=== PATIENT | male | born 1980 | race African-American/Black ===

== ENCOUNTER 2016-08-14 18:13 | Inpatient (IN) | payer OTHER ==
[~2016-08-14] VITALS: Ht 175.3 cm; Wt 81.6 kg
--- NOTE | 2016-08-14 18:51 | NUR ---
Informed waiting has been performed.
--- NOTE | 2016-08-14 18:51 | NUR ---
TRIAGE: UPPER LIP SWELLING SINCE NOON. PT HAS HAD S/S OF N/V/D X 3 DAYS WITH ASSOCIATED ABD PAIN AND CHEST PAIN. NO VOMITING TODAY. HAS BEEN TOLERATING GATORADE SINCE 6 PM. REPORTS AT TIMES FEELS ACID LIKE BURNING IN HIS THROAT BUT DENIES DIFFICULTY BREATHING OR SWALLOWING.
[2016-08-14] MEDS ORDERED: SERTRALINE HCL100 MG PO (19:01)
[2016-08-14] MEDS ORDERED: TRAZODONE HCL100 M1 PO (19:01)
--- NOTE | 2016-08-14 19:11 | ED GI/GU/ABDOMINAL COMPLAINT ---
History of Present Illness General Chief Complaint: General Adult Stated Complaint: UPPER LIP SWOLLEN, +NVD, X 3 DAYS Source: patient Exam Limitations: no limitations Vital Signs & Intake/Output Vital Signs & Intake/Output Vital Signs Date Time Temp Pulse Resp B/P Pulse O2 O2 Flow FiO2 Ox Delivery Rate 08/14 2119 84 18 107/65 100 Room Air 08/14 2000 97 Room Air 08/14 1904 98.7 80 18 99/63 99 Room Air 08/14 1845 98.7 98 20 97/62 98 Room Air Allergies Coded Allergies: No Known Allergies (08/14/16) Reconcile Medications Sertraline HCl 100 MG TABLET 1 TAB PO DAILY MENTAL HEALTH (Reported) Trazodone HCl 100 MG TABLET 1 TAB PO QPM SLEEP/MENTAL HEALTH (Reported) Triage Note: TRIAGE: UPPER LIP SWELLING SINCE NOON. PT HAS HAD S/S OF N/V/D X 3 DAYS WITH ASSOCIATED ABD PAIN AND CHEST PAIN. NO VOMITING TODAY. HAS BEEN TOLERATING GATORADE SINCE 6 PM. REPORTS AT TIMES FEELS ACID LIKE BURNING IN HIS THROAT BUT DENIES DIFFICULTY BREATHING OR SWALLOWING. Triage Nurses Notes Reviewed? yes Onset: Gradual Duration: day(s):, getting worse Timing: recent history Location: nausa, vomiting, upper lip swelling Radiation: no radiation Activities at Onset: none Prior Abdominal Problems: none Modifying Factors: Worsens With: vomiting. Associated Symptoms: nausea/vomiting HPI: 36 yo gentleman h/o depression, presents with 2-3 days of nausea, vomiting, of uncertain etiology. He notes that this afternoon he developed swelling of his upper lip. He confers no dyspnea or wheezing. He is not on rosy inhibitors. He has never had such reactions before. He notes occasional loose stool, but no fever, chills, rash, palpitations, chest pain. He is otherwise well. Past History Travel History Traveled to [place] past 21 day No Medical History Any Pertinent Medical History? 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 No Review of Systems Review of Systems Constitutional: Reports: no symptoms. EENTM: Reports: no symptoms. Respiratory: Reports: no symptoms. Cardiovascular: Reports: no symptoms. GI: Reports: no symptoms. Genitourinary: Reports: no symptoms. Musculoskeletal: Reports: no symptoms. Skin: Reports: no symptoms. Neurological/Psychological: Reports: no symptoms. Hematologic/Endocrine: Reports: no symptoms. Immunologic/Allergic: Reports: no symptoms. All Other Systems: Reviewed and Negative Physical Exam Physical Exam General Appearance: well developed/nourished, mild distress Head: atraumatic, normal appearance Eyes: Bilateral: normal appearance. Ears, Nose, Throat, Mouth: hearing grossly normal, upper lip with significant edema. no change in tongue/oropharynx Neck: normal inspection, supple, full range of motion Respiratory: normal breath sounds, chest non-tender, no respiratory distress, quiet respiration, lungs clear Cardiovascular: regular rate/rhythm Gastrointestinal: normal bowel sounds, soft, minimal mid epigastric tenderness to palpation. no rebound. no guarding. Back: normal inspection, normal range of motion Extremities: normal range of motion Neurologic/Psych: no motor/sensory deficits, awake, alert, oriented x 3 Skin: intact, normal color, warm/dry Core Measures ACS in differential dx? No Severe Sepsis Present: No Septic Shock Present: No Progress Differential Diagnosis: viral syndrome vs reflux vs allergic reaction vs other. Plan of Care: Orders Procedure Date/time Status Nothing by Mouth 08/15 B Active Patient Data 08/14 2146 Active Saline Lock 08/14 2121 Active Misc Message 08/14 2121 Active ED Holding Orders 08/14 2121 Active Admit to inpatient 08/14 2121 Active Vital Signs 08/14 2121 Active Code Status 08/14 2121 Active TROPONIN LEVEL 08/14 1911 Complete LIPASE 08/14 1911 Complete HEPATIC FUNCTION PANEL 08/14 1911 Complete CBC WITHOUT DIFFERENTIAL 08/14 1911 Complete BASIC METABOLIC PANEL 08/14 1911 Complete AMYLASE 08/14 1911 Complete EKG 08/14 1911 Active Laboratory Tests 08/14/16 1425: Anion Gap 18 H, Estimated GFR 16 L, BUN/Creatinine Ratio 13.0, Glucose 101 H, Calcium 9.6, Total Bilirubin 0.9, Direct Bilirubin 0.4, AST 19, ALT 45, Alkaline Phosphatase 73, Troponin I < 0.01, Total Protein 8.2, Albumin 4.8, Amylase 76, Lipase 128, CBC w Diff NO MAN DIFF REQ, RBC 5.37, MCV 90.9, MCH 30.7, RDW 13.5, MPV 8.2, Gran % 59.7, Lymphocytes % 29.4, Monocytes % 9.6 H, Eosinophils % 0.7, Basophils % 0.6, Absolute Granulocytes 5.3, Absolute Lymphocytes 2.6, Absolute Monocytes 0.8 H, Absolute Eosinophils 0.1, Absolute Basophils 0.1, PUBS MCHC 33.8 Initial ED EKG: nonspecific st changes. Departure Departure Disposition: HOME OR SELF CARE Condition: Stable Clinical Impression Primary Impression: Renal failure Secondary Impressions: Allergic reaction, Dehydration, Nausea and vomiting Departure Forms: Customer Survey General Discharge Information Admission Note Spoke With: DAWSON MACIAS MD Documentation of Exam: Documentation of any treatments & extenuating circumstances including Concerns Regarding Discharge (functional status, medication knowledge or non-compliance, living conditions, etc.) that warrant an admission rather than observation: pt with renal failure with cr of 4.3... also with hyponatremia... likely hypovolemia... give the degree of his renal failure, pt merits iv fluids, possibly renal consult in AM if not resolving. Critical Care Note Critical Care Note Critical Care Time: 30-74 min
[2016-08-14 19:51] LABS: ABSOLUTE BASOPHIL COUNT 0.1 /CUMM (0.0-0.2); ABSOLUTE EOSINOPHIL COUNT 0.1 /CUMM (0.0-0.7); ABSOLUTE GRANULOCYTE CT 5.3 /CUMM (1.4-6.5); ABSOLUTE LYMPH COUNT 2.6 /CUMM (1.2-3.4); ABSOLUTE MONOCYTE COUNT 0.8 /CUMM (0.10-0.60); BASOPHIL % 0.6 % (0.0-2.0); EOSINOPHIL % 0.7 % (0-5); GRANULOCYTE % 59.7 % (42.2-75.2); HEMATOCRIT 48.8 % (42-52); MEAN CORPUSCULAR HGB 30.7 PG (27.0-31.0); MEAN CORPUSCULAR HGB CONC 33.8 G/DL (33.0-37.0); MEAN CORPUSCULAR VOLUME 90.9 FL (80.0-94.0); MEAN PLATELET VOLUME 8.2 FL (7.4-10.4); PLATELET COUNT 265 /CUMM (130-400); RBC DISTRIBUTION WIDTH 13.5 % (11.5-14.5); RED BLOOD CELL CT 5.37 /CUMM (4.70-6.10); WHITE BLOOD CELL COUNT 8.8 /CUMM (4.8-10.8)
--- NOTE | 2016-08-14 19:56 | NUR ---
TRIAGE NOTE ACKNOWLEDGED. PT REPORTS SAME TO THIS RN AND THAT HE HAS NOT BEEN SLEEPING WELL LATELY AND HAS BEEN STRESSED OUT. MD AWARE. IV ESTABLISHED LAC #20, BEST AVAILABLE. MEDICATED WITH PEPCID, ZOFRAN, GI COCKTAIL AND BENADRYL PER ORDER (SEE MAR). NS BOLUS INFUSING AT THIS TIME. WILL CONTINUE TO MONITOR.
--- NOTE | 2016-08-14 20:46 | NUR ---
PT STATES HE FEELS "A LITTLE BETTER." IMPROVEMENT IN UPPER LIP SWELLING NOTED. PT ALSO EXPRESSES RELIEF ON NAUSEA. NS STILL INFUSING, WILL CTM.
--- NOTE | 2016-08-14 20:48 | NUR ---
IN TO [facility]EEVAL PT AT THIS TIME.
--- NOTE | 2016-08-14 22:00 | History & Physical ---
LUPE RICHTER,[facility] [place] 08/14/16 2159: General Information and HPI MD Statement: I have seen and personally examined STEFFANY TENORIO and documented this H&P. The patient is a 36 year old M who presented with a patient stated chief complaint of malaise. Source of Information: patient, family Exam Limitations: no limitations History of Present Illness: 36 y/o M with PMHx of HTN and depression who presents with nausea, vomiting and malaise x 3 days. Patient had 6 episodes of nonbloody emesis since the onset of symptoms but feels that nausea and appetite have improved. The day prior to current presentation, he developed diffuse abdominal pain and left-sided chest discomfort, 6 out of 10 in severity, associated with breathing and not reproducible on palpation. He also noted decrease in his urine output as well as darkening in the color of his urine. He denies fevers, chills, constipation, diarrhea, leg swelling, rash or muscle aches. He denies any dietary changes, sick contacts, recent travel or insect bites. However, according to his mother, he has been drinking a lot of Gatorade. The morning of current presentation he noted lip swelling. He denies shortness or breath or wheezing. Patient was diagnosed with HTN last year and took HCTZ for a few months but stopped taking the medication on his own once his blood pressure improved to 120/80s, measured at home, after 75-lbs weight loss. However, a few months ago his BP was found to be markedly elevated (SBP of 200s) during an urgent care visit. Of note, patient was recently diagnosed with depression and started taking Zoloft and trazodone a few months ago but denies taking any other new medications including NSAIDs. 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 Home Who Do You Live With? parent Primary Language: Djib[place]ian Smoking Status: Never Smoked ETOH Use: denies use Illicit Drug Use: denies illicit drug use Employment History Employment Unemployed Review of Systems Review of Systems Constitutional: Reports: malaise, weakness. Denies: chills, fever. EENTM: Reports: see HPI. Cardiovascular: Reports: chest pain. Denies: peripheral edema. Respiratory: Denies: cough, short of breath, sputum production. GI: Reports: abdominal pain, nausea, vomiting. Denies: constipation, diarrhea, bloody stool. Genitourinary: Reports: see HPI. Musculoskeletal: Denies: muscle pain. Skin: Denies: rash. Neurological/Psychological: Reports: no symptoms. Hematologic/Endocrine: Reports: no symptoms. Immunologic/Allergic: Reports: no symptoms. All Other Systems: Reviewed and Negative Exam & Diagnostic Data Last 24 Hrs of Vital Signs/I&O Vital Signs Date Time Temp Pulse Resp B/P Pulse O2 O2 Flow FiO2 Ox Delivery Rate 08/14 2251 97.6 85 19 128/74 99 Room Air 08/14 2119 84 18 107/65 100 Room Air 08/14 2001 97 Room Air 08/14 1904 98.7 80 18 99/63 99 Room Air 08/14 1845 98.7 98 20 97/62 98 Room Air Intake & Output 08/15 0800 08/15 0000 08/14 1600 Intake Total 1000 Output Total Balance 1000 Intake, IV 1000 Patient 81.647 kg Weight Physical Exam General Appearance Alert, Oriented X3, No Acute Distress Skin No Rashes HEENT PERRLA, No Conjunctival Pallor or Scleral Icterus, Swollen Lips, Dry Mucous Membranes Cardiovascular Regular Rate, Normal S1, Normal S2, No Murmurs, Gallops, Rubs Lungs Clear to Auscultation, Normal Air Movement Abdomen Soft, No Tenderness, Positive Bowel Sounds Neurological No Gross Focal Deficits Noted Extremities No Clubbing, No Cyanosis, No Edema Last 24 Hrs of Labs/Rogleio: Laboratory Tests 08/14/16 2218: Lactic Acid 1.0 08/14/16 1425: Anion Gap 18 H, Estimated GFR 16 L, BUN/Creatinine Ratio 13.0, Glucose 101 H, Calcium 9.6, Total Bilirubin 0.9, Direct Bilirubin 0.4, AST 19, ALT 45, Alkaline Phosphatase 73, Creatine Kinase 73, Troponin I < 0.01, Total Protein 8.2, Albumin 4.8, Amylase 76, Lipase 128, CBC w Diff NO MAN DIFF REQ, RBC 5.37, MCV 90.9, MCH 30.7, RDW 13.5, MPV 8.2, Gran % 59.7, Lymphocytes % 29.4, Monocytes % 9.6 H, Eosinophils % 0.7, Basophils % 0.6, Absolute Granulocytes 5.3, Absolute Lymphocytes 2.6, Absolute Monocytes 0.8 H, Absolute Eosinophils 0.1, Absolute Basophils 0.1, PUBS MCHC 33.8 Diagnostic Data EKG Results NSR HR 91 QTc 488 Assessment/Plan Assessment: 36 y/o with PMHx of HTN and depression who presents with nausea, vomiting and malaise x 3 days and lip swelling x 1 day, with creatinine of 4.3 on admission. #HELDER: Creatinine 4.3 on admission. No documented prior baseline, although patient denies history of kidney disease. Unclear etiology. Differential includes pre-renal secondary to volume contraction or intra-renal most likely secondary to hypertensive nephrosclerosis. * Nephrology consulted. Appreciate their recs. * Monitor strict I/Os and daily BMPs. * Check urinalysis. * Bilateral renal US. * Urine lytes ordered. Calculate FeNa to distinguish between pre-renal vs intra- renal etiologies. * Check CPK. * Aggressive IVF hydration with NS @ 150 cc/hr. #HTN: Diagnosed 1 year ago and started on HCTZ which he stopped taking on his own after BPs improved (self-measured at home) following weight loss. However had markedly elevated BP at urgent care visit a few months ago. EKG suspicious for LVH. * ECHO ordered to evaluate for LVH given hypertension. #Lip swelling: Most likely represents angioedema. No respiratory distress or skin rashes. Unclear etiology. Patient denies taking any new medications and is not on CHEN inhibitors. No dietary changes except he has been drinking a lot of Gatorade. S/p IV Pepcid and Benadryl in the ED. * Monitor for improvement. #Depression: * Continue prior to admission Zoloft 100 mg PO QD. #Insomnia: * Continue prior to admission trazodone 100 mg PO QD. #Nausea/vomiting: Most likely viral gastroenteritis. Symptoms have improved since onset. * Continue IVF hydration. * Anti-emetics PRN. Diet: Regular DVT PPx: HSQ and ALPs CODE: FULL As Ranked By This Provider Problem List: 1. HELDER (acute kidney injury) 2. Nausea and vomiting 3. Depression 4. Insomnia 5. Lip swelling 6. Hypertension Core Measures/Miscellaneous Acute Coronary Syndrome ACS Diagnosis: No Cerebrovascular Accident CVA/TIA Diagnosis: No Congestive Heart Failure CHF Diagnosis: No Venous Thromboembolism VTE Risk Factors: Acute medical illness VTE Prophylaxis Ordered Inpt: Mech & Pharm No Mech VTE prophylaxis d/t: No contraindications No VTE Pharm Prophylaxis d/t: No contraindications VTE Diagnosis: No VTE Type: NONE VTE Confirmed by (Test): NONE Severe Sepsis Severe Sepsis Present: No Septic Shock Septic Shock Present: No Miscellaneous Documentation Attending Case Discussed With: DAWSON MACIAS MD Primary Care Physician: PATIENT HAS NO PRIMARY CARE DR Patient sees these Specialists Psychiatrist Pierre Payan at [facility] Level of Patient Care: General Medicine GUALBERTO TUBBS 08/14/16 9299: Resident Review Statement Resident Statement: examined this patient, discussed with editing intern, agreed with editing intern, discussed with family, reviewed EMR data (avail), discussed with nursing , discussed with case mgmt, reviewed images, amended to note Other Findings: 36-year-old gentleman with history of hypertension not on antihypertensive medication (was on HCTZ and stopped the medication by himself), spikes of HTN intermitantly, presented to the emergency room complaining of swelling of his upper lip, preceded by two-day history of nausea, vomiting and crampy abdominal pain and associated generalized malaise and body aches and weakness and also having dark([employer] color) urine and became oliguric and anuric on . Patient denies any recent travel, sick contact on, insect bites, fever, chills, chest pain, lightheadedness, dizziness, skin changes, fall or loss of couniosuness, muscle cramp or tenderness, prior similar episodes. ROS: generalized malaise and ache. Swelling of his upper lip. VS: 97/62; 98.7; 98; 20 Ph/EX: H&N: sclrea is pale, NO LAD, swelling and tenderness of the upper lip, pharynx and throat is Normalm, CVS and lungs: WNL, ABd: soft, no tenderness; Extermities: no edema, no rash; Neuro: AOx3, No motor and sensory deficit. Pertinenet data: CBC: normal BEP: BUN: 56, Cr: 4.3 and Troponin: neg Problem and List of DDX: 1) Acute renal failure: pre-, post-, or renal causes * Admit to * Continous IV hydration; Nl saline 150 ml per hours * restrict I/O * Abdominal US; Kidney B/L- R/o Post renal causes * Urine Lyte and FeNa: Renal Vs Pre-renal * CK to r/o myglubinuria * Repeat EKG * Consult Nephrology in the am * Urine analysis Repeat BEP in the am 2) Hx of HTN, non-compliant with treatment and ?? EKG changes * obtain Echo; R/O LVH (HTN cardiomyopathy) 3) Sleep disturbance * Trazodone 4) Depression * Zoloft Full code Heparin 5000U SQ Q8 GILBERTOALBAROMando 08/15/16 0819: Attending MD Review Statement Attending Statement Attending MD Statement: examined this patient, discuss w/resident/PA/MANAGER LVN, agreed w/resident/PA/MANAGER LVN, discussed with family, reviewed EMR data (avail), reviewed images, amended to note Attending Assessment/Plan: Cc: Nausea vomiting lethargy PMH: Depression, questionable hypertension Patient was noticing nausea and vomiting since last few days, yesterday his urine output was decreased and had some dark-colored urine. He was feeling lethargic and on the day of admission his lips swollen up so he came to ER. Patient did not take any medications or any change in diet. He drank a lot of Gatorade according to his mother. No respiratory complaints, chest pain, abdominal pain, skin itching and rash. Vitals: Afebrile, blood pressure in low normal range without any significant tachycardia, RRR, O2 saturation within acceptable range. On examination: A O 3, no obvious respiratory distress, lying comfortably on bed, neck supple, no lymphadenopathy, lips are swollen, suspect angioedema. Mucosa extremely dry, CVS: S1-S2, RRR, no rub or gallop. RS: Clear to auscultate bilaterally. Abdomen: Soft, 90, ND, bowel sounds present, no skin rashes, no pitting edema, no focal neurological deficit. Labs: Sodium 131, chloride 88, anion gap 18, BUN 56, creatinine 4.3 [baseline not known] otherwise CBC, BMP, LFT unremarkable. Assessment and plan #1 lip swelling: ? Angioedema, first episode, patient not on any ACEI, only change that patient's mother mentions, he drank a lot of Gatorade in different "colors". No obvious change in food. Patient does not appear in respiratory distress, no skin rashes or hives. Blood pressure maintained. Patient received a dose of Benadryl and famotidine in ER And already improving the swelling. #2 Acute kidney injury: This appears secondary to volume contraction, patient appears dehydrated on examination. Obtain UA, obtain FENA as patient's urine output is decreased, obtain CPK, renal ultrasound, aggressive hydration, repeat labs in morning. If patient doesn't improve other causes of CKD should be sought for. His baseline creatinine is unknown. #3 according to patient's mother and patient blood pressure has been fluctuating in last 1 year and not very clear about history of hypertension, patient was on HCTZ 1 year back for a few weeks, he lost weight and stopped the medication on his own. At home blood pressure checks were normal but at urgent care visit few months back it was elevated unclear if he has hypertension or not. EKG showed suspicion for LVH, getting 2-D echo. #4 nausea vomiting: Continue hydration, when necessary Zofran, probably viral in etiology, abdomen is benign on exam. conservative management for now. # 5 early ambulation for DVT prophylaxis, adequate pain control.
--- NOTE | 2016-08-14 22:08 | NUR ---
PT HAS BED #218-1 READY NOW
--- NOTE | 2016-08-14 22:20 | NUR ---
LACTIC DRAWN AND SENT TO LAB. REPORT GIVEN TO RAMON CLEMONS. HOUSE STAFF AT BEDSIDE. TRANSPORT CALLED.
[2016-08-14 22:51] VITALS: BP 128/74
--- NOTE | 2016-08-14 22:56 | NUR ---
PT ARRIVED FROM ER, A&OX3, VSS, AMBULATING WITHOUT DIFFICULTY. PT W/ HX OF FALL, REFUSING BED ALARM, VERBALIZES UNDERSTANDING TO CALL PRIOR TO GETTING OOB. ABD SOFT, NON DISTENDED, +BS, DENIES N/V/D AT THIS TIME. ORIENTED TO ROOM AND CALL SYSTEM. WILL MONITOR.
--- NOTE | 2016-08-15 05:21 | PN- Housestaff ---
GUALBERTO TUBBS 08/15/16 0519: Subjective Follow-up For: Acute renal failure History of hypertension; noncompliant with medication and treatments Angioedema Review of Systems Constitutional: Reports: malaise, weakness. Denies: chills, diaphoresis, fever, unexplained weight loss. EENTM: Denies: visual changes, eye pain, eye drainage, eye tearing, icterus, ear discharge, ear pain, ear redness, hearing changes, nasal congestion, epistaxis, nasal pain, throat pain, throat swelling, mouth pain, tooth pain. Cardiovascular: Denies: chest pain, edema, orthopena, palpitations, peripheral edema, syncope. Respiratory: Denies: cough, hemoptysis, orthopnea, short of breath, sputum production, stridor, wheezing. Gastrointestinal: Denies: abdominal pain, bloating, constipation, diarrhea, distention, bowel incontinence, melena, nausea, bloody stool, changes in stool, vomiting, steatorrhea. Objective Last 24 Hrs of Vital Signs/I&O Vital Signs Date Time Temp Pulse Resp B/P Pulse O2 O2 Flow FiO2 Ox Delivery Rate 08/14 2251 97.6 85 19 128/74 99 Room Air 08/14 2119 84 18 107/65 100 Room Air 08/14 2001 97 Room Air 08/14 1904 98.7 80 18 99/63 99 Room Air 08/14 1845 98.7 98 20 97/62 98 Room Air Intake & Output 08/15 0800 08/15 0000 08/14 1600 Intake Total 1200 1000 Output Total 350 Balance 850 1000 Intake, IV 1200 1000 Output, Urine 350 Patient 180 lb Weight Physical Exam General Appearance: Alert, Oriented X3, Cooperative, No Acute Distress Skin: No Rashes, No Breakdown, No Significant Lesion HEENT: Atraumatic, PERRLA, EOMI, Mucous Membr. moist/pink, swelling of his upper lip-improving Neck: Supple, No JVD, No thryomegaly, +2 Carotid Pulse wo Bruit, No LAD Lymphatic: Axillary nl, Cervical nl Cardiovascular: Normal S1, Normal S2, No Murmurs Lungs: Clear to Auscultation, Normal Air Movement Abdomen: Soft, No Tenderness, No Hepatospenomegaly Extremities: No Edema Assessment/Plan Assessment: 36-year-old gentleman with history of hypertension not on antihypertensive medication (was on HCTZ and stopped the medication by himself), spikes of HTN intermitantly, presented to the emergency room complaining of swelling of his upper lip, preceded by two-day history of nausea, vomiting and crampy abdominal pain and associated generalized malaise and body aches and weakness and also having dark(Coca-Cola color) urine and became oliguric and anuric on . Patient denies any recent travel, sick contact on, insect bites, fever, chills, chest pain, lightheadedness, dizziness, skin changes, fall or loss of couniosuness, muscle cramp or tenderness, prior similar episodes. ROS: generalized malaise and ache. Swelling of his upper lip. VS: 97/62; 98.7; 98; 20 Ph/EX: H&N: sclrea is pale, NO LAD, swelling and tenderness of the upper lip, pharynx and throat is Normalm, CVS and lungs: WNL, ABd: soft, no tenderness; Extermities: no edema, no rash; Neuro: AOx3, No motor and sensory deficit. Pertinenet data: CBC: normal BEP: BUN: 56, Cr: 4.3 and Troponin: neg Problem and List of DDX: 1) Acute renal failure: pre-, post-, or renal causes * Admit to GM * Continous IV hydration; Nl saline 150 ml per hours * restrict I/O; positive fluid balance of 850ml * follow Abdominal US; Kidney B/L- R/o Post renal causes * Urine hemoglobin negative, urine random creatinine 205, urine random sodium 44 urine potassium 28.2 FeNa 0.7, CK 73 * CK to r/o myglubinuria * Repeat EKG * Follow Nephrology recommendations * Urine analysis-unremarkable 2) Hx of HTN, non-compliant with treatment and ?? EKG changes * Echo; R/O LVH (HTN cardiomyopathy) 3) Sleep disturbance * Trazodone 4) Depression * Zoloft Full code Heparin 5000U SQ Q8 Problem List: 1. Depression 2. HELDER (acute kidney injury) 3. Nausea and vomiting 4. Dehydration 5. Renal failure Pain Ratin Pain Location: back pain Pain Goal: Pain 4 or less Pain Plan: Tylenol and oxycodone Tomorrow's Labs & Rationales: Trending BEP every 6 hours MERRY RICHTER,WILMAN 08/15/16 1134: Attending MD Review Statement Attending Statement Attending MD Statement: examined this patient, discuss w/resident/PA/FINISH INSPECTOR, agreed w/resident/PA/FINISH INSPECTOR, reviewed EMR data (avail), discussed with nursing, reviewed images, amended to note Attending Assessment/Plan: Patient seen and examined, claims that he's feeling tired. Denies any aches or pains. 36-year-old male with questionable past medical history for hypertension and medication noncompliance who was admitted with nausea vomiting, dehydration and acute renal failure likely secondary to prerenal azotemia. He also had swollen lips on admission which has improved. Vital Signs Date Time Temp Pulse Resp B/P Pulse O2 O2 Flow FiO2 Ox Delivery Rate 08/15 0827 98.4 86 18 100/58 99 Room Air 08/14 2251 97.6 85 19 128/74 99 Room Air 08/14 2119 84 18 107/65 100 Room Air 08/14 2000 97 Room Air 08/14 1904 98.7 80 18 99/63 99 Room Air 08/14 1845 98.7 98 20 97/62 98 Room Air on exam; aox3, nad. cv; s1, s2, rrr. resp; clear abd; soft, nt, bs+ ext; no edema Laboratory Tests 08/15 08/15 08/15 08/14 0655 0022 0022 2218 Chemistry Sodium (137 - 145 mmol/L) 135 L Potassium (3.5 - 5.1 mmol/L) 4.1 Chloride (98 - 107 mmol/L) 96 L Carbon Dioxide (22 - 30 mmol/L) 25 Anion Gap (5 - 16) 14 BUN (9 - 20 mg/dL) 47 H Creatinine (0.7 - 1.2 mg/dL) 2.1 H Estimated GFR (>60 ml/min) 36 L BUN/Creatinine Ratio (7 - 25 %) 22.4 Lactic Acid (0.7 - 2.1 mmol/L) 1.0 Urines Urine Color (YEL,AMB,STR) YEL Urine Clarity (CLEAR) CLEAR Urine pH (5.0 - 8.0) 6.0 Ur Specific [place] (1.001 - 1.035) 1.020 Urine Protein (NEG,<30 MG/DL) NEG Urine Ketones (NEG) NEG Urine Nitrite (NEG) NEG Urine Bilirubin (NEG) NEG Urine Urobilinogen (0.1 - 1.0 EU/dl) 0.2 Ur Leukocyte Esterase (NEG) NEG Ur Microscopic EXAM NOT REQUIRED Urine Hemoglobin (NEG) NEG Ur Random Creatinine (mg/dL) 205.3 Ur Random Sodium (30 - 90 mmol/L) 44 Ur Random Potassium (mmol/L) 28.2 Fraction Sodium Excret (<1% %) 0.7 Urine Glucose (N MG/DL) NEG 08/14 1425 Chemistry Sodium (137 - 145 mmol/L) 131 L Potassium (3.5 - 5.1 mmol/L) 4.4 Chloride (98 - 107 mmol/L) 88 L Carbon Dioxide (22 - 30 mmol/L) 25 Anion Gap (5 - 16) 18 H BUN (9 - 20 mg/dL) 56 H Creatinine (0.7 - 1.2 mg/dL) 4.3 H Estimated GFR (>60 ml/min) 16 L BUN/Creatinine Ratio (7 - 25 %) 13.0 Glucose (65 - 99 mg/dL) 101 H Calcium (8.4 - 10.2 mg/dL) 9.6 Total Bilirubin (0.2 - 1.3 mg/dL) 0.9 Direct Bilirubin (< 0.4 mg/dL) 0.4 AST (17 - 59 U/L) 19 ALT (21 - 72 U/L) 45 Alkaline Phosphatase (< 127 U/L) 73 Creatine Kinase (55 - 170 U/L) 73 Troponin I (<0.11 ng/ml) < 0.01 Total Protein (6.3 - 8.2 g/dL) 8.2 Albumin (3.5 - 5.0 g/dL) 4.8 Amylase (30 - 110 U/L) 76 Lipase (23 - 300 U/L) 128 Hematology CBC w Diff NO MAN DIFF REQ WBC (4.8 - 10.8 /CUMM) 8.8 RBC (4.70 - 6.10 /CUMM) 5.37 Hgb (14.0 - 18.0 G/DL) 16.5 Hct (42 - 52 %) 48.8 MCV (80.0 - 94.0 FL) 90.9 MCH (27.0 - 31.0 PG) 30.7 RDW (11.5 - 14.5 %) 13.5 Plt Count (130 - 400 /CUMM) 265 MPV (7.4 - 10.4 FL) 8.2 Gran % (42.2 - 75.2 %) 59.7 Lymphocytes % (20.5 - 51.1 %) 29.4 Monocytes % (1.7 - 9.3 %) 9.6 H Eosinophils % (0 - 5 %) 0.7 Basophils % (0.0 - 2.0 %) 0.6 Absolute Granulocytes (1.4 - 6.5 /CUMM) 5.3 Absolute Lymphocytes (1.2 - 3.4 /CUMM) 2.6 Absolute Monocytes (0.10 - 0.60 /CUMM) 0.8 H Absolute Eosinophils (0.0 - 0.7 /CUMM) 0.1 Absolute Basophils (0.0 - 0.2 /CUMM) 0.1 PUBS MCHC (33.0 - 37.0 G/DL) 33.8 A/P; 36-year-old male with history significant for depression, possible history of hypertension, used to be on hydrochlorothiazide then stopped taking the medication after his blood pressure normalized with weight loss admitted with nausea, vomiting, dehydration and acute renal failure secondary to prerenal azotemia. Creatinine improved today. Please decrease the rate of fluids to 100 mL an hour but continue the IV fluids. Patient's urinalysis is normal. Renal ultrasound normal. Patient has been started on regular diet. We'll continue to monitor creatinine. If does not improve further with IV fluids then will consider getting nephrology consult. Continue psych medications. DVT prophylaxis: Heparin subcutaneous. If Cr improves further tomorrow, likely discharge home.
--- NOTE | 2016-08-15 08:21 | Admission Certification ---
Admission Certification Certification Statement - As attending physician, I certify that at the time of - admission, based on clinical presentation, severity of - symptoms, need for further diagnostic testing and - therapeutic interventions, and risk of adverse outcomes - without in-hospital treatment, in my clinical assessment, - this patient requires an acute hospital stay for a minimum - of two nights or longer. I have also considered psychsocial - factors such as support system, advanced age, financial - issues, cognitive issues, and failed out-patient treatments, - past re-admission history, safety of patient, and lack of - compliance as applicable. Specific rationale supporting this admission is: Acute kidney injury, volume contraction
[2016-08-15 08:27] VITALS: BP 100/58
--- NOTE | 2016-08-15 11:23 | ULTRASOUND REPORT ---
EXAMINATION: US RETROPERITONEAL COMPLETE (RENAL) CLINICAL INFORMATION: Nausea, vomiting, malaise. Acute renal failure.. COMPARISON: None. TECHNIQUE: Real-time imaging of the kidneys and bladder. FINDINGS: RIGHT KIDNEY: 11.4 x 6.0 x 5.7 cm (SAG x AP x TRV). The kidney is normal in size, contour, and echogenicity. Renal cortical thickness is normal. No calculi or focal parenchymal lesions. No hydronephrosis. LEFT KIDNEY: 12.3 x 7.0 x 5.5 cm (SAG x AP x TRV). The kidney is normal in size, contour, and echogenicity. Renal cortical thickness is normal. No calculi or focal parenchymal lesions. No hydronephrosis. BLADDER: Well-distended and normal. Bilateral ureteral jets are demonstrated. Prevoid bladder volume is 260 mL. IMPRESSION: No evidence of obstructive uropathy. No evidence of increased cortical echogenicity to suggest medical renal disease..
--- NOTE | 2016-08-15 16:39 | Cons- Nephrology ---
General Information and HPI Consulting Request Date of Consult: 08/15/16 Requested By: DAWSON MACIAS MD Reason for Consult: HELDER Source of Information: patient, family, old records Exam Limitations: no limitations History of Present Illness: The patient is a 36-year-old man with a past medical history most significant for depression, prior history of hypertension in the setting of obesity for which he has lost 75 pounds who presents with nausea, vomiting, abdominal pain. The patient had noted nausea, vomiting, abdominal pain, and poor by mouth intake for approximately 3 days prior to presentation. He denied taking any additional medications including nonsteroidals during this time. On presentation to the emergency room he was found to have a creatinine of 4.3, sodium 131, anion gap 18 with a lactate of 1.0 and a glucose of 101. Urinalysis with no protein, no ketones, no leukocytes, no blood in fractional excretion of sodium was 0.7%. Renal ultrasound with right kidney 11.4 cm and left kidney 12.3 cm without evidence of obstruction. Patient was given IV fluid totaling 2.2 L after which his creatinine came down to 2.1. The patient says he is now able to eat and drink okay and is symptom free. He denies any known history of kidney disease. There is no known history of kidney disease in his family. Of note, his BP here has been 100's-120's/50's-70's. Allergies/Medications Allergies: Coded Allergies: No Known Allergies (08/14/16) Home Med List: Sertraline HCl 100 MG TABLET 1 TAB PO DAILY MENTAL HEALTH (Reported) Trazodone HCl 100 MG TABLET 1 TAB PO QPM SLEEP/MENTAL HEALTH (Reported) Current Medications: Current Medications Sig/Nan Start time Last Medication Dose Route Stop Time Status Admin Acetaminophen 325 MG Q6P PRN 08/14 2330 AC PO Diphenhydramine HCl 0 .STK-MED ONE 08/14 1945 DC .ROUTE Diphenhydramine HCl 50 MG ONCE ONE 08/14 1914 DC 08/14 IV 08/14 Famotidine 0 .STK-MED ONE 08/14 1945 DC IV Famotidine 20 MG ONCE ONE 08/14 1914 DC 08/14 IV 08/14 Heparin Sodium 5,000 UNIT Q8 08/14 2301 AC 08/15 (Porcine) SC 1442 Ondansetron HCl 0 .STK-MED ONE 08/14 1946 DC .ROUTE Ondansetron HCl 4 MG ONCE ONE 08/14 1914 DC 08/14 IV 08/14 Oxycodone HCl 5 MG Q6H 08/14 2330 DC PO Sertraline HCl 100 MG DAILY 08/15 1000 AC 08/15 PO 0906 Sodium Chloride 1,000 ML Q10H 08/15 1300 AC IV Sodium Chloride 1,000 ML Q6H 08/14 2315 DC 08/15 IV 0619 Sodium Chloride 1,000 ML BOLUS ONE 08/14 191 DC 08/14 IV 08/14 2013 195 Sodium Chloride 1,000 ML BOLUS ONE 08/14 191 DC IV 08/14 2013 Trazodone HCl 100 MG QPM 08/14 231 AC 08/14 PO 2340 Trazodone HCl 100 MG .STK-MED ONE 08/14 230 DC PO 08/14 230 Review of Systems Review of Systems: Complete 14 point ROS neg except as per HPI. Past History Travel History Traveled to [place] past 21 day No Medical History Blood Transfusion Hx: No Neurological: NONE EENT: NONE Cardiovascular: NONE Respiratory: NONE Gastrointestinal: NONE Hepatic: NONE Renal: NONE Musculoskeletal: NONE Psychiatric: depression, insomnia Endocrine: NONE Blood Disorders: NONE Cancer(s): NONE RAIL OPERATOR/Reproductive: NONE Surgical History Surgical History: 1 Family History Relations & Conditions If Any: MOTHER FH: diabetes mellitus FH: HTN (hypertension) MATERNAL GRANDMOTHER FH: diabetes mellitus Psychosocial History Where Do You Live? Home Who Do You Live With? parent Services at Home: None Primary Language: Italian Smoking Status: Never Smoked ETOH Use: denies use Illicit Drug Use: denies illicit drug use Employment History Employment: Unemployed Exam & Diagnostic Data Vital Signs and I&O Vital Signs Date Time Temp Pulse Resp B/P Pulse O2 O2 Flow FiO2 Ox Delivery Rate 08/15 0827 98.4 86 18 100/58 99 Room Air 08/141 97.6 85 19 128/74 99 Room Air 08/149 84 18 107/65 100 Room Air 08/14 2000 97 Room Air 08/14 190 98.7 80 18 99/63 99 Room Air 08/14 1845 98.7 98 20 97/62 98 Room Air Intake & Output 08/15 1600 08/15 0400 Intake Total 1200 1000 Output Total 200 150 Balance 1000 850 Intake, IV 1200 1000 Output, Urine 200 150 Patient 180 lb Weight Physical Exam: Gen - NAD Head - NCAT Eyes - anicteric sclera Neck - supple CV - RRR Chest - clear Abd - soft, nontender, nondistended Ext - no edema Neuro - AOX3, grossly nonfocal Psych - appropriate affect Results Pertinent Lab Results: Laboratory Tests 08/15 08/15 08/15 08/14 0655 0022 0022 2218 Chemistry Sodium (137 - 145 mmol/L) 135 L Potassium (3.5 - 5.1 mmol/L) 4.1 Chloride (98 - 107 mmol/L) 96 L Carbon Dioxide (22 - 30 mmol/L) 25 Anion Gap (5 - 16) 14 BUN (9 - 20 mg/dL) 47 H Creatinine (0.7 - 1.2 mg/dL) 2.1 H Estimated GFR (>60 ml/min) 36 L BUN/Creatinine Ratio (7 - 25 %) 22.4 Lactic Acid (0.7 - 2.1 mmol/L) 1.0 Urines Urine Color (YEL,AMB,STR) YEL Urine Clarity (CLEAR) CLEAR Urine pH (5.0 - 8.0) 6.0 Ur Specific [place] (1.001 - 1.035) 1.020 Urine Protein (NEG,<30 MG/DL) NEG Urine Ketones (NEG) NEG Urine Nitrite (NEG) NEG Urine Bilirubin (NEG) NEG Urine Urobilinogen (0.1 - 1.0 EU/dl) 0.2 Ur Leukocyte Esterase (NEG) NEG Ur Microscopic EXAM NOT REQUIRED Urine Hemoglobin (NEG) NEG Ur Random Creatinine (mg/dL) 205.3 Ur Random Sodium (30 - 90 mmol/L) 44 Ur Random Potassium (mmol/L) 28.2 Fraction Sodium Excret (<1% %) 0.7 Urine Glucose (N MG/DL) NEG 08/14 1425 Chemistry Sodium (137 - 145 mmol/L) 131 L Potassium (3.5 - 5.1 mmol/L) 4.4 Chloride (98 - 107 mmol/L) 88 L Carbon Dioxide (22 - 30 mmol/L) 25 Anion Gap (5 - 16) 18 H BUN (9 - 20 mg/dL) 56 H Creatinine (0.7 - 1.2 mg/dL) 4.3 H Estimated GFR (>60 ml/min) 16 L BUN/Creatinine Ratio (7 - 25 %) 13.0 Glucose (65 - 99 mg/dL) 101 H Calcium (8.4 - 10.2 mg/dL) 9.6 Total Bilirubin (0.2 - 1.3 mg/dL) 0.9 Direct Bilirubin (< 0.4 mg/dL) 0.4 AST (17 - 59 U/L) 19 ALT (21 - 72 U/L) 45 Alkaline Phosphatase (< 127 U/L) 73 Creatine Kinase (55 - 170 U/L) 73 Troponin I (<0.11 ng/ml) < 0.01 Total Protein (6.3 - 8.2 g/dL) 8.2 Albumin (3.5 - 5.0 g/dL) 4.8 Amylase (30 - 110 U/L) 76 Lipase (23 - 300 U/L) 128 Hematology CBC w Diff NO MAN DIFF REQ WBC (4.8 - 10.8 /CUMM) 8.8 RBC (4.70 - 6.10 /CUMM) 5.37 Hgb (14.0 - 18.0 G/DL) 16.5 Hct (42 - 52 %) 48.8 MCV (80.0 - 94.0 FL) 90.9 MCH (27.0 - 31.0 PG) 30.7 RDW (11.5 - 14.5 %) 13.5 Plt Count (130 - 400 /CUMM) 265 MPV (7.4 - 10.4 FL) 8.2 Gran % (42.2 - 75.2 %) 59.7 Lymphocytes % (20.5 - 51.1 %) 29.4 Monocytes % (1.7 - 9.3 %) 9.6 H Eosinophils % (0 - 5 %) 0.7 Basophils % (0.0 - 2.0 %) 0.6 Absolute Granulocytes (1.4 - 6.5 /CUMM) 5.3 Absolute Lymphocytes (1.2 - 3.4 /CUMM) 2.6 Absolute Monocytes (0.10 - 0.60 /CUMM) 0.8 H Absolute Eosinophils (0.0 - 0.7 /CUMM) 0.1 Absolute Basophils (0.0 - 0.2 /CUMM) 0.1 PUBS MCHC (33.0 - 37.0 G/DL) 33.8 Imaging/Other Studies: EXAM TYPE: US - US-RENAL/KIDNEY EXAMINATION: US RETROPERITONEAL COMPLETE (RENAL) CLINICAL INFORMATION: Nausea, vomiting, malaise. Acute renal failure.. COMPARISON: None. TECHNIQUE: Real-time imaging of the kidneys and bladder. FINDINGS: RIGHT KIDNEY: 11.4 x 6.0 x 5.7 cm (SAG x AP x TRV). The kidney is normal in size, contour, and echogenicity. Renal cortical thickness is normal. No calculi or focal parenchymal lesions. No hydronephrosis. LEFT KIDNEY: 12.3 x 7.0 x 5.5 cm (SAG x AP x TRV). The kidney is normal in size, contour, and echogenicity. Renal cortical thickness is normal. No calculi or focal parenchymal lesions. No hydronephrosis. BLADDER: Well-distended and normal. Bilateral ureteral jets are demonstrated. Prevoid bladder volume is 260 mL. IMPRESSION: No evidence of obstructive uropathy. No evidence of increased cortical echogenicity to suggest medical renal disease.. Assessment/Plan Assessment/Recommendations Assessment: HELDER - The patient had what is likely acute kidney injury secondary to volume depletion. With intravenous fluid, this improved, suggesting a large component of reversible prerenal azotemia. There may also be a component of ischemic ATN which may improve as well. The bland urine sediment supports this hypothesis. Although I don't know what his baseline creatinine is, I think it would be reasonable to send the patient out with follow-up labs in the next week. If his renal function remains abnormal, he should follow up with nephrology. I told the patient that for patients who develop acute kidney injury, there is a risk for chronic kidney disease if his renal function does not fully recover. I also told him that given that he developed such severe injury with volume depletion, and I would avoid medicine such as nonsteroidals in the setting that could further exacerbate such an injury. HTN - May have been more related to his obesity which has resolved. Not currently an issue. Recommendations: -Would be reasonable to discharge from a renal standpoint if eating/drinking OK -Would avoid NSAID's in settings of volume depletion -Would get a f/u BMP in the next week -Would have patient f/u with nephrology if SCr remains >1.4 upon recheck
[2016-08-15 17:14] VITALS: BP 107/51
[2016-08-16 00:03] VITALS: BP 104/60
[2016-08-16 08:08] VITALS: BP 100/60
--- NOTE | 2016-08-16 08:33 | PN- Housestaff ---
ROLANDO TAVERA 08/16/16 0833: Subjective Follow-up For: Acute renal failure Subjective: seen and examined pt, offers no complaints Review of Systems Constitutional: Denies: chills, diaphoresis, fever, malaise, weakness, unexplained weight loss. Cardiovascular: Denies: see HPI, chest pain, edema, orthopena, palpitations, peripheral edema, syncope. Respiratory: Denies: cough, hemoptysis, orthopnea, short of breath, sputum production, stridor, wheezing. Objective Last 24 Hrs of Vital Signs/I&O Vital Signs Date Time Temp Pulse Resp B/P Pulse O2 O2 Flow FiO2 Ox Delivery Rate 08/16 0808 98.1 73 20 100/60 96 Room Air 08/16 0003 98.7 80 20 104/60 98 Room Air 08/15 1714 97.8 87 18 107/51 97 Intake & Output 08/16 1600 08/16 0800 08/16 0000 Intake Total 1040 900 Output Total 325 Balance 1040 575 Intake, IV 800 300 Intake, Oral 240 600 Output, Urine 325 Physical Exam General Appearance: Alert, Oriented X3, Cooperative, No Acute Distress Cardiovascular: Normal S1, Normal S2 Lungs: Clear to Auscultation, Normal Air Movement Extremities: No Edema Current Medications: Current Medications Sig/Ann Start time Last Medication Dose Route Stop Time Status Admin Acetaminophen 325 MG Q6P PRN 08/14 2330 AC PO Diphenhydramine HCl 50 MG ONCE ONE 08/15 2114 DC 08/15 PO 08/15 2115 2120 Heparin Sodium 5,000 UNIT Q8 08/14 2301 AC 08/15 (Porcine) SC 1442 Sertraline HCl 100 MG DAILY 08/15 1000 AC 08/16 PO 0919 Sodium Chloride 1,000 ML Q10H 08/15 1300 AC 08/15 IV 2121 Sodium Chloride 1,000 ML Q6H 08/14 2315 DC 08/15 IV 0619 Trazodone HCl 100 MG QPM 08/14 2315 AC 08/15 PO 2119 Last 24 Hrs of Lab/Rogelio Results Last 24 Hrs of Labs/Mics: Laboratory Tests 08/16/16 0720: Anion Gap 10, Estimated GFR > 60, BUN/Creatinine Ratio 26.3 H Assessment/Plan Assessment: 36-year-old gentleman with history of hypertension not on antihypertensive medication (was on HCTZ and stopped the medication by himself),current admission for abdominal pain associated with generalized malaise and body aches and weakness and dark(Coca-[employer]a color) urine, found to be oliguric and anuric. Found to have a creatinine of 4.3, sodium 131, anion gap 18 with a lactate of 1.0 and a glucose of 101. Urinalysis with no protein, no ketones, no leukocytes , no blood in fractional excretion of sodium was 0.7%. Renal ultrasound with right kidney 11.4 cm and left kidney 12.3 cm without evidence of obstruction. no issues overnight. cleared for discharge today. Problem and List of DDX: 1) Acute renal failure: * creatinine/bun 21/0.8 * Nephrology consulted * advised to avoid NSAID's, get a f/u BMP in the next week * patient to f/u with nephrology if SCr remains >1.4 upon recheck * f/up to Dr. Spencer given 3) Sleep disturbance * Trazodone * 4) Depression * Zoloft Full code Heparin 5000U SQ Q8 Problem List: 1. HELDER (acute kidney injury) Pain Ratin Pain Location: na Pain Goal: Pain 4 or less Pain Plan: current regimen Tomorrow's Labs & Rationales: none required WILMAN SOUSA MD 08/16/16 1431: Attending MD Review Statement Attending Statement Attending MD Statement: examined this patient, discuss w/resident/PA/ORDER PROCESSING CLERK, agreed w/resident/PA/ORDER PROCESSING CLERK, discussed with family, reviewed EMR data (avail), discussed with nursing, amended to note Attending Assessment/Plan: Patient seen and examined, feeling much better. Vital signs are stable. Creatinine back to normal. Patient is medically stable for discharge. We'll follow-up with Dr. Grider from nephrology as an outpatient. Will repeat BEP in one week.
--- NOTE | 2016-08-16 08:36 | PN- Housestaff ---
Assessment/Plan Assessment: 36-year-old gentleman with history of hypertension not on antihypertensive medication (was on HCTZ and stopped the medication by himself), spikes of HTN intermitantly, presented to the emergency room complaining of swelling of his upper lip, preceded by two-day history of nausea, vomiting and crampy abdominal pain and associated generalized malaise and body aches and weakness and also having dark(Coca-Cola color) urine and became oliguric and anuric on . Patient denies any recent travel, sick contact on, insect bites, fever, chills, chest pain, lightheadedness, dizziness, skin changes, fall or loss of couniosuness, muscle cramp or tenderness, prior similar episodes. ROS: generalized malaise and ache. Swelling of his upper lip. VS: 97/62; 98.7; 98; 20 Ph/EX: H&N: sclrea is pale, NO LAD, swelling and tenderness of the upper lip, pharynx and throat is Normalm, CVS and lungs: WNL, ABd: soft, no tenderness; Extermities: no edema, no rash; Neuro: AOx3, No motor and sensory deficit. Pertinenet data: CBC: normal BEP: BUN: 56, Cr: 4.3 and Troponin: neg Problem and List of DDX: 1) Acute renal failure: pre-, post-, or renal causes * Admit to GM * Continous IV hydration; Nl saline 150 ml per hours * restrict I/O; positive fluid balance of 850ml * follow Abdominal US; Kidney B/L- R/o Post renal causes * Urine hemoglobin negative, urine random creatinine 205, urine random sodium 44 urine potassium 28.2 FeNa 0.7, CK 73 * CK to r/o myglubinuria * Repeat EKG * Follow Nephrology recommendations * Urine analysis-unremarkable 2) Hx of HTN, non-compliant with treatment and ?? EKG changes * Echo; R/O LVH (HTN cardiomyopathy) 3) Sleep disturbance * Trazodone 4) Depression * Zoloft Full code Heparin 5000U SQ Q8
--- NOTE | 2016-08-16 11:05 | Patient Discharge Instructions ---
Discharge Instructions General Discharge Information You were seen/treated for: nausea, vomiting, abdominal pain acute kidney injury Special Instructions: avoid NSAID's f/u BMP wednesday08/21/2014 f/u with tenant selector if creatinine >1.4 f/u with new PCP Dr. Dorita Spencer Acute Coronary Syndrome Inclusion Criteria At DC or during hospital stay patient has or had the following: ACS DIAGNOSIS No Discharge Core Measures Meds if any: Prescribed or Continued at Discharge Meds if any: NOT Prescribed or Continued at Discharge Congestive Heart Failure Inclusion Criteria At DC or during hospital stay patient has or had the following: CHF DIAGNOSIS No Discharge Core Measures Meds if any: Prescribed or Continued at Discharge Meds if any: NOT Prescribed or Continued at Discharge Cerebrovascular accident Inclusion Criteria At DC or during hospital stay patient has or had the following: CVA/TIA Diagnosis No Discharge Core Measures Meds if any: Prescribed or Continued at Discharge Meds if any: NOT Prescribed or Continued at Discharge Venous thromboembolism Inclusion Criteria VTE Diagnosis No VTE Type NONE VTE Confirmed by (Test) NONE Discharge Core Measures - Per Current guidelines, there needs to be overlap - treatment for the first 5 days of Warfarin therapy. - If discharged on Warfarin prior to 5 days of - overlap therapy, the patient will need to be - assessed for post discharge needs including - *Post discharge parental anticoagulation - *Warfarin and/or parental anticoagulation education - *Follow up date to check INR post discharge At least 5 days overlap therapy as Inpatient No Meds if any: Prescribed or Continued at Discharge Note: Overlap Therapy is Warfarin and Anticoagulant Meds if any: NOT Prescribed or Continued at Discharge
--- NOTE | 2016-09-04 13:46 | Discharge Summary ---
Visit Information Visit Dates Admission Date: 08/14/16 Discharge Date: 08/16/16 Hospital Course Course Attending Physician: WILMAN SOUSA MD Primary Care Physician: PATIENT HAS NO PRIMARY CARE DR Hospital Course: 36-year-old gentleman with past medical history of hypertension not on antihypertensive medication (was on HCTZ and stopped the medication by himself), presented to the emergency room with chief complaint of swelling of his upper lip, two-day history of nausea, vomiting and crampy abdominal pain with associated generalized malaise and body aches. Also reported having dark color urine. Vitals Signs on admission: BP: 97/62; temp 98.7; HR 98; RR 20 Labs: Sodium 131, chloride 88, anion gap 18, BUN 56, creatinine 4.3 [baseline not known] otherwise CBC, BMP, LFT unremarkable. Admitted to the general medicine floor and the following issues were addressed: 1) Acute renal failure: Nephrology was consulted. HELDER thought to secondary to volume depletion as it improved with intravenous fluids. Advised to avoid NSAID's and get a f/u BMP week following discharege. Recomended patient to follow up with nephrology if SCr remains >1.4 upon recheck. Follow up to Dr. Spencer was also given. 2) Sleep disturbance :Trazodone was continued 3) Depression : Zoloft was continued Patient was Full code Complications: none Allergies: Coded Allergies: No Known Allergies (08/14/16) Significant Procedures: SERVICE DATE: 08/15/165 EXAM TYPE: US - US-RENAL/KIDNEY FINDINGS: RIGHT KIDNEY: 11.4 x 6.0 x 5.7 cm (SAG x AP x TRV). The kidney is normal in size, contour, and echogenicity. Renal cortical thickness is normal. No calculi or focal parenchymal lesions. No hydronephrosis. LEFT KIDNEY: 12.3 x 7.0 x 5.5 cm (SAG x AP x TRV). The kidney is normal in size, contour, and echogenicity. Renal cortical thickness is normal. No calculi or focal parenchymal lesions. No hydronephrosis. BLADDER: Well-distended and normal. Bilateral ureteral jets are demonstrated. Prevoid bladder volume is 260 mL. IMPRESSION: No evidence of obstructive uropathy. No evidence of increased cortical echogenicity to suggest medical renal disease.. Disposition Summary Disposition Principal Diagnosis: Acute kidney injury Additional Diagnosis: depression sleep disturbance Discharge Disposition: home or self care Discharge Instructions General Discharge Information Code Status: Full Code Patient's Diet: regular Patient's Activity: full activity Follow-Up Instructions/Appts: avoid NSAIDS f/u BMP wednesday08/21/2014 f/u with option trader if creatinine >1.4 f/u with new PCP Dr. Larry Spencer Medications at Discharge Discharge Medications: Continue taking these medications: Sertraline HCl (Sertraline HCl) 100 MG TABLET 1 Tablet ORAL DAILY Comments: Last Taken: 08/16/16 Time: 0900AM Trazodone HCl (Trazodone HCl) 100 MG TABLET 1 Tablet ORAL Every night Comments: Last Taken: 08/15/16 Time: 2200PM Copies To: GAUDENCIO RICHTER,LARRY Lamas MD Review Statement Documenting Attending: WILMAN SOUSA MD
== END 2016-08-16 12:55 | DRG 469 ==
LOC: ENRESERVTM → ENRESERVDT → ERH 18:13 → ENPENDDIS 21:22 → ERHI 21:22 → 2NB 21:22
PROVIDERS: Pediatrics; ADMIT Internal Medicine
DX: N17.9 Acute kidney failure, unspecified (principal); I10 Essential (primary) hypertension; G47.9 Sleep disorder, unspecified; F32.9 Major depressive disorder, single episode, unspecified
CPT/HCPCS: 2NBP; 84133; 84300; 36415; 76775; 81003; 82436; 82570; 93005; 93010; 96374; 96375; J1200; J1644; J2405